=== PATIENT | female | born 1945 | race Caucasian/White ===

== ENCOUNTER → 2017-06-30 | Outpatient (CLI) | payer MEDICARE, OTHER ==
[~2017-06-30] MED LIST: AMLO5TAB2 PO; CETI10CA PO; CIPR500T78 PO; ENAL20TA PO; HYDR-757 PO; IBUP-30 PO; LACTAID9000 UNIT PO; METR500T PO; [UNRECOGNIZED DRUG - CODE] PO
--- NOTE | 2017-06-30 17:35 | Diagnostic Imaging Report ---
Bilateral screening mammogram 2D views with tomosynthesis. The current study was also evaluated with a Computer Aided Detection (CAD) system. INDICATION: Screening. No current complaints stated on the questionnaire. COMPARISON: 06/22/2016. FINDINGS: The breasts are composed of heterogeneously dense parenchyma which may decrease mammographic sensitivity. Benign-appearing calcifications are seen. Allowing for technique and positional differences, no suspicious change is seen. IMPRESSION: Dense breasts with no definite change. ACR BI-RADS Category 2: Benign findings. Result letter will be mailed to the patient. Note: At least 10% of breast cancer is not imaged by mammography. Dictated by: Dictated on workstation # [id number]
== END ==
LOC: RAD 13:06
PROVIDERS: ATTEND Nurse Practitioner Family
DX: Z12.31 Encounter for screening mammogram for malignant neoplasm of breast (principal)
CPT/HCPCS: 77067

== ENCOUNTER 2017-08-02 14:01 | Emergency (ER) | payer MEDICARE, OTHER ==
[~2017-08-02] VITALS: Ht 165.1 cm; Wt 59.0 kg
--- OUTSIDE RECORDS SUMMARY | 2017-08-02 14:06 | XMS REPORT | Continuity of Care Document ---
Author Author [facility] Organization [facility] Address Unknown Phone Unavailable Care Team Providers Care Education Adviser Name Role Phone [employer] Unavailable Unavailable Problems Medications Allergies, Adverse Reactions, Alerts Immunizations Results Vital Signs Encounters Location Location Details Encounter Type Encounter Number Reason For Visit Attending Provider ADM Date DC Date Status Source OUTPATIENT [id number] RANDY WARE 05/05/20172016 Active [facility] O Active [facility] Procedures Plan of Care Social History Assessment and Plan Family History Value Date Source Advance Directives Order Name Results Value Date Source
--- OUTSIDE RECORDS SUMMARY | 2017-08-02 14:07 | XMS REPORT | Clinical Summary ---
Author Author [facility] Address Unknown Phone Unavailable Care Team Providers Care Frame Welder Cargo Utility Trailers Name Role Phone PCP Unavailable Source Comments Some departments are not documenting in the electronic medical record. If you do not see the information that you expected, contact Release of Information in the Health Information Management department at [phone] for further assistance in locating additional records.[facility] Allergies Active Allergy Reactions Severity Noted Date Comments Etodolac RASH Medium 01/16/2015 Pollen SNEEZING, EDEMA Medium 07/30/2015 Sulfa (Sulfonamide RASH Medium 01/16/2015 Antibiotics) Milk Containing Products NAUSEA ONLY Low 01/16/2015 Lactose Intolerance Current Medications Prescription Sig. Disp. Refills Start End Date Status Date Cetirizine (ZYRTEC) 10 mg Take by mouth. Active cap L-GLUTAMINE PO Take 100 mg by mouth Active daily. CYANOCOBALAMIN (VITAMIN Take 1,000 mcg by mouth Active B-12) (B-12 DOTS PO) daily. atorvastatin (LIPITOR) 20 Take 20 mg by mouth at Active mg tablet bedtime daily. fish oil /omega-3 fatty Take 2 Caps by mouth Active acids (SEA-OMEGA) twice daily. 340/1000 mg capsule cholecalciferol (VITAMIN Take 1,000 Units by mouth Active D-3) 1,000 units tablet daily. MULTIVITAMIN WITH Take by mouth. Active MINERALS (MULTIVITAMIN & MINERAL FORMULA PO) losartan (COZAAR) 50 mg Take 50 mg by mouth Active tablet daily. adalimumab(+) (HUMIRA Inject 40 mg under the 1 each 0 06/17/20 Active PEN) 40 mg/0.8 mL skin every 14 days. 17 injection pen Active Problems Problem Noted Date Crohn's disease of ileum without complication (HCC) 08/23/2016 Encounters Date Type Specialty Care Team Description 06/17/2017 Refill Gastroenterology Franky Blackwell MD 06/15/2017 Refill Gastroenterology Franky Blackwell MD 05/18/2017 Refill Gastroenterology Franky Blackwell MD 05/05/2017 Hospital Franky Blackwell MD Encounter 05/05/2017 Office Visit Gastroenterology Franky Blackwell MD Crohn's colitis, without complications (Primary Dx) 05/05/2017 Telephone Gastroenterology Franky Blackwell MD Test from Last 3 Months Immunizations Name Dates Previously Given Next Due Pneumococcal Vaccine 07/30/2015 (23-Jill Adult) Family History Medical History Relation Name Comments Cancer Father bone cancer Unknown to Patient Maternal Grandfather Unknown to Patient Maternal Grandmother Dementia Mother Heart Disease Paternal Grandmother Relation Name Status Comments Daughter Alive Father Maternal Grandfather Maternal Grandmother Mother Alive Paternal Grandfather Paternal Grandmother Son Alive Social History Tobacco Use Types Packs/Day Years Used Date Never Smoker Smokeless Tobacco: Never Used Alcohol Use Drinks/Week oz/Week Comments No Sex Assigned at Date Recorded Not on file Last Filed Vital Signs Vital Sign Reading Time Taken Blood Pressure 138/90 05/05/2017 11:03 AM CDT Pulse 70 05/05/2017 11:03 AM CDT Temperature 37.2 C (98.9 F) 05/05/2017 11:03 AM CDT Respiratory Rate 14 05/05/2017 11:03 AM CDT Oxygen Saturation - - Inhaled Oxygen - - Concentration Weight 53 kg (116 lb 14.4 oz) 05/05/2017 11:03 AM CDT Height 157.5 cm (5' 2") 05/05/2017 11:03 AM CDT Body Mass Index 21.38 05/05/2017 11:03 AM CDT Plan of Treatment Date Type Specialty Care Team Description 05/05/2017 Procedure Pass Gastroenterology 05/05/2017 Procedure Pass Gastroenterology Health Maintenance Due Date Last Done Comments HEPATITIS C SCREENING 1945 PHYSICAL (COMPREHENSIVE) 1954 EXAM PERTUSSIS VACCINE 1958 TETANUS VACCINE 1964 BREAST CANCER SCREENING 1987 SHINGLES VACCINE 2007 OSTEOPOROSIS SCREENING 2012 PREVNAR/PNEUMOVAX (#2) 07/30/2016 07/30/2015 INFLUENZA VACCINE 05/03/2017 COLORECTAL CANCER 12/05/2024 12/05/2014 SCREENING Results * CBC (05/05/2017 12:00 PM) Component Value Ref Range White Blood Cells 7.9 4.5 - 11.0 K/UL RBC 4.24 4.0 - 5.0 M/UL Hemoglobin 12.4 12.0 - 15.0 GM/DL Hematocrit 36.7 36 - 45 % MCV 86.5 80 - 100 FL MCH 29.2 26 - 34 PG MCHC 33.8 32.0 - 36.0 G/DL RDW 14.1 11 - 15 % Platelet Count 195 150 - 400 K/UL MPV 10.1 7 - 11 FL Specimen Performing Laboratory [facility] [address] [place] [address] * COMPREHENSIVE METABOLIC PANEL (05/05/2017 12:00 PM) Component Value Ref Range Sodium 142 137 - 147 MMOL/L Potassium 4.0 3.5 - 5.1 MMOL/L Chloride 107 98 - 110 MMOL/L Glucose 111 (H) 70 - 100 MG/DL Blood Urea Nitrogen 23 7 - 25 MG/DL Creatinine 0.95 0.4 - 1.00 MG/DL Calcium 9.6 8.5 - 10.6 MG/DL Total Protein 7.6 6.0 - 8.0 G/DL Total Bilirubin 0.5 0.3 - 1.2 MG/DL Albumin 4.2 3.5 - 5.0 G/DL Alk Phosphatase 65 25 - 110 U/L AST (SGOT) 31 7 - 40 U/L CO2 27 21 - 30 MMOL/L ALT (SGPT) 30 7 - 56 U/L Anion Gap 8 3 - 12 eGFR Non 58 (L) >60 mL/min Comment: The eGFR is not validated for use in drug dosing adjustments. Continue to use estimated creatinine clearance per dosing reference text. Please contact the Clinical Pharmacist for questions. eGFR >60 >60 mL/min Comment: The eGFR is not validated for use in drug dosing adjustments. Continue to use estimated creatinine clearance per dosing reference text. Please contact the Clinical Pharmacist for questions. Specimen Performing Laboratory [facility] [address] [place] [address] from Last 3 Months
--- OUTSIDE RECORDS SUMMARY | 2017-08-02 14:07 | XMS REPORT | Encounter Summary ---
Author Author [facility] Organization [facility] Address Unknown Phone Unavailable Care Team Providers Care Packer Insulation Name Role Phone PCP Unavailable Encounter Details Date Type Department Care Team Description 05/05/2017 Procedure Pass [facility] Physicians - Internal Medicine [address] [place] [phone] Social History Tobacco Use Types Packs/Day Years Used Date Never Smoker Smokeless Tobacco: Never Used Alcohol Use Drinks/Week oz/Week Comments No Sex Assigned at Date Recorded Not on file as of this encounter Functional Status Functional Status Response Date of Assessment Does the patient have a hearing impairment: No 05/05/2017 Does the patient have a visual impairment: Yes 05/05/2017 Does the patient have impaired ambulation: No 05/05/2017 Does the patient have an activity of daily living No 05/05/2017 (ADL) impairment: Does the patient have an instrumental activity of No 05/05/2017 daily living (IADL) impairment: Cognitive Status Response Date of Assessment Does the patient have a cognitive impairment: No 05/05/2017 as of this encounter Plan of Treatment Date Type Specialty Care Team Description 05/05/2017 Procedure Pass Gastroenterology 05/05/2017 Procedure Pass Gastroenterology as of this encounter Visit Diagnoses Not on filein this encounter
--- OUTSIDE RECORDS SUMMARY | 2017-08-02 14:11 | XMS REPORT | Encounter Summary ---
Author Author [facility] Organization [facility] Address Unknown Phone Unavailable Care Team Providers Care Engineering Group Leader Name Role Phone PCP Unavailable Reason for Visit * Reason Comments Medication Refill Humira Encounter Details Date Type Department Care Team Description 06/17/2017 Refill [facility] Franky Blackwell MD Physicians - Internal [address] [facility] [place] [address] [place] [address] [place] [address] Social History Tobacco Use Types Packs/Day Years [...]
--- OUTSIDE RECORDS SUMMARY | 2017-08-02 14:11 | XMS REPORT | Encounter Summary ---
Author Author [facility] Organization [facility] Address Unknown Phone Unavailable Care Team Providers Care Sanitary Landfill Supervisor Name Role Phone PCP Unavailable Encounter Details Date Type Department Care Team Description 05/05/2017 Procedure Pass [facility] Physicians - Internal Medicine [address] [place] [phone] Social History Tobacco Use Types Packs/Day Years [...]
--- OUTSIDE RECORDS SUMMARY | 2017-08-02 14:11 | XMS REPORT | Encounter Summary ---
Author Author [facility] Organization [facility] Address Unknown Phone Unavailable Care Team Providers Care Shellfish Processing Laborer Name Role Phone PCP Unavailable Reason for Visit * Reason Comments Medication Refill Humira Pen 40 MG Encounter Details Date Type Department Care Team Description 06/15/2017 Refill [facility] Franky Blackwell MD Physicians - Internal [address] [facility] [place] [address] [place] [address] [place] [address] Social History Tobacco Use Types [...] impairment: No 05/05/2017 as of this encounter Miscellaneous Notes * Telephone Encounter - Deyanira Mccoy LPN - 06/15/2017 2:06 PM CDT Refill Humira Pen 40 MG in this encounter Plan of Treatment Date Type Specialty Care Team Description 05/05/2017 Procedure Pass Gastroenterology 05/05/2017 Procedure Pass Gastroenterology as of this encounter Visit Diagnoses Not on filein this encounter
--- OUTSIDE RECORDS SUMMARY | 2017-08-02 14:11 | XMS REPORT | Encounter Summary ---
Author Author [facility] Organization [facility] Address Unknown Phone Unavailable Care Team Providers Care Senior Talent Management Consultant Name Role Phone PCP Unavailable Reason for Visit * Reason Comments Medication Refill Encounter Details Date Type Department Care Team Description 05/18/2017 Refill [facility] Franky Blackwell MD Physicians - Internal [address] [facility] Medicine [place] [address] [place] [address] [address] [facility] [phone] [place] [address] Social History Tobacco Use Types Packs/Day Years [...] encounter Miscellaneous Notes * Telephone Encounter - Brigitte Brunsonsha - 05/18/2017 1:06 PM CDT Formatting of this note may be different from the original. Refill request received for Humira Pen 40 mg Last OV 05/05/2017 Last fill 04/12/2017 Qty #1 each Refills 0 Last labs 05/05/2017 Routing to Franky Grisolano for approval/refusal Comprehensive Metabolic Profile Lab Results Component Value Date/Time NA 142 05/05/2017 12:00 PM K 4.0 05/05/2017 12:00 PM CL 107 05/05/2017 12:00 PM CO2 27 05/05/2017 12:00 PM GAP 8 05/05/2017 12:00 PM BUN 23 05/05/2017 12:00 PM CR 0.95 05/05/2017 12:00 PM GLU 111 (H) 05/05/2017 12:00 PM Lab Results Component Value Date/Time CA 9.6 05/05/2017 12:00 PM ALBUMIN 4.2 05/05/2017 12:00 PM TOTPROT 7.6 05/05/2017 12:00 PM ALKPHOS 65 05/05/2017 12:00 PM AST 31 05/05/2017 12:00 PM ALT 30 05/05/2017 12:00 PM TOTBILI 0.5 05/05/2017 12:00 PM GFR 58 (L) 05/05/2017 12:00 PM GFRAA >60 05/05/2017 12:00 PM CBC w/Diff Lab Results Component Value Date/Time WBC 7.9 05/05/2017 12:00 PM RBC 4.24 05/05/2017 12:00 PM HGB 12.4 05/05/2017 12:00 PM HCT 36.7 05/05/2017 12:00 PM MCV 86.5 05/05/2017 12:00 PM MCH 29.2 05/05/2017 12:00 PM MCHC 33.8 05/05/2017 12:00 PM RDW 14.1 05/05/2017 12:00 PM PLTCT 195 05/05/2017 12:00 PM MPV 10.1 05/05/2017 12:00 PM Lab Results Component Value Date/Time NEUT 68.4 04/29/2014 ANC 5.4 04/29/2014 LYMA 25.5 04/29/2014 ALC 2.0 04/29/2014 in this encounter Plan of Treatment Date Type Specialty Care Team Description 05/05/2017 Procedure Pass Gastroenterology 05/05/2017 Procedure Pass Gastroenterology as of this encounter Visit Diagnoses Not on filein this encounter
[2017-08-02 14:12] VITALS: BP 181/93
--- OUTSIDE RECORDS SUMMARY | 2017-08-02 14:12 | XMS REPORT | Encounter Summary ---
Author Author [facility] Organization [facility] Address Unknown Phone Unavailable Care Team Providers Care Offal Trimmer Name Role Phone PCP Unavailable Reason for Visit * Reason Comments Test Encounter Details Date Type Department Care Team Description 05/05/2017 Telephone [facility] Franky Blackwell MD Test Physicians - Internal [address] [facility] [place] [address] [place] [address] [place] [address] Social History Tobacco Use Types [...] encounter Miscellaneous Notes * Telephone Encounter - Marine Mccoy RN - 05/05/2017 1:42 PM CDT Clarified with Radiology Schedule MR should be enterography abd/pelvis Lisa [id number] in this encounter Plan of Treatment Date Type Specialty Care Team Description 05/05/2017 Procedure Pass Gastroenterology 05/05/2017 Procedure Pass Gastroenterology as of this encounter Visit Diagnoses Not on filein this encounter
--- OUTSIDE RECORDS SUMMARY | 2017-08-02 14:12 | XMS REPORT | Encounter Summary ---
Author Author [facility] Organization [facility] Address Unknown Phone Unavailable Care Team Providers Care Dairy Quality Assurance Officer Name Role Phone PCP Unavailable Encounter Details Date Type Department Care Team Description 05/05/2017 [facility] Franky Blackwell MD Encounter [address] [place] [address] [address] [place] [address] Social History Tobacco Use Types Packs/Day Years [...] impairment: No 05/05/2017 as of this encounter Medications at Time of Discharge Medication Sig. Disp. Refills Start Date End Date atorvastatin (LIPITOR) 20 Take 20 mg by mouth at mg tablet bedtime daily. Cetirizine (ZYRTEC) 10 mg Take by mouth. cap cholecalciferol (VITAMIN Take 1,000 Units by mouth D-3) 1,000 units tablet daily. CYANOCOBALAMIN (VITAMIN Take 1,000 mcg by mouth B-12) (B-12 DOTS PO) daily. fish oil /omega-3 fatty Take 2 Caps by mouth acids (SEA-OMEGA) twice daily. 340/1000 mg capsule L-GLUTAMINE PO Take 100 mg by mouth daily. losartan (COZAAR) 50 mg Take 50 mg by mouth tablet daily. MULTIVITAMIN WITH Take by mouth. MINERALS (MULTIVITAMIN & MINERAL FORMULA PO) adalimumab(+) (HUMIRA Inject 40 mg under the 1 Each 0 04/12/2017 PEN) 40 mg/0.8 mL skin every 14 days. injection pen as of this encounter Plan of Treatment Date Type Specialty Care Team Description 05/05/2017 Procedure Pass Gastroenterology 05/05/2017 Procedure Pass Gastroenterology as of this encounter Results * COMPREHENSIVE METABOLIC PANEL (05/05/2017 12:00 PM) [...] Performing Laboratory [facility] [address] [place] [address] * CBC (05/05/2017 12:00 PM) Component Value [...] Performing Laboratory [facility] [address] [place] [address] in this encounter Visit Diagnoses Diagnosis Crohn's colitis, without complications (HCC) in this encounter
--- OUTSIDE RECORDS SUMMARY | 2017-08-02 14:12 | XMS REPORT | Encounter Summary ---
Author Author [facility] Organization [facility] Address Unknown Phone Unavailable Care Team Providers Care Ships Equipment Engineer Name Role Phone PCP Unavailable Reason for Referral * Radiology Services Status Reason Specialty Diagnoses / Referred By Referred To Procedures Contact Contact New Request Radiology Diagnoses [place] Blackwell's colitisFranky MD without [address] ([facility]) [place] [address] [place], [place] rocedures [address] MRI PELVIS W Phone: CONTRAST [phone] * Radiology Services Status Reason Specialty Diagnoses / Referred By Referred To Procedures Contact Contact No Auth Needed Radiology Diagnoses Rishi Bhb Mri Crohn's colitis, MD Franky [address] without [address] [place], [place] ([facility]) [address] [address] [address] [place], [place] Phone: [email or web address] [phone] MRI ABDOMEN W Phone: CONTRAST [phone] Reason for Visit * Reason Comments Crohn's Disease follow up Encounter Details Date Type Department Care Team Description 05/05/2017 Office Visit [facility] Franky Blackwell MD Crohn's colitis, without Physicians - Internal [address] complications (Primary Medicine [place] [address] Dx) [address] [place] [address] [place] [address] Social History Tobacco Use Types Packs/Day Years Used Date Never Smoker Smokeless Tobacco: Never Used Alcohol Use Drinks/Week oz/Week Comments No Sex Assigned at Date Recorded Not on file as of this encounter Last Filed Vital Signs Vital Sign Reading [...] Mass Index 21.38 05/05/2017 11:03 AM CDT in this encounter Functional Status Functional Status Response [...] impairment: No 05/05/2017 as of this encounter Instructions * Patient Instructions - Franky Blackwell MD - 05/05/2017 1:00 PM CDT Call my nurse at [phone] if you have any troubles or questions. Humira Instructions These are very powerful medication used to treat inflammatory bowel disease. There is increased risk of infections while taking this medication. There is a small increase in the risk of lymphoma with this medication; however, the benefit of taking this medication in your situation is felt to greatly outweigh this risk. Skin cancer risk is increased. You need to wear sun screen and undergo a full body skin cancer check each year by a Loader (or your primary physician). You must take responsibility for keeping all follow up appointments and getting regular blood tests to monitor for any toxicity while on this medication. Call my nurse with any questions of if you are not feeling well ([phone]). Additional information about this medication can be found at the [employer] [place] website (www.ccfa.org) and I encourage you to visit this website. 1. Please keep all scheduled follow up visits. Contact my office if you are unable to keep an appointment or if you develop any troubles or symptoms between office visits. 2. Contact your primary physician's office if you develop any signs of an infection. If you have a suspected infection or are being treated for a current infection YOU CAN NOT take this medication until the infection has completely resolved. 3. Contact my office if you develop persistent fevers, chills, night sweats or swollen lymph nodes or glands. 4. DO NOT receive any LIVE VIRUS VACCINES [live vaccines include: nasal influenza, MMR, Varicella-Zoster (chicken pox and Shingles vaccines), Rotavirus] . 5. You will need a yearly influenza vaccine (DO NOT take the nasal influenza vaccine; only receive the shot). 6. You will need a pneumonia vaccination; you will also need pneumonia vaccine booster in 5 years. If you have not received this vaccination get this from your primary physician. 7. If you are female, please discuss HPV vaccination with your primary physician or textile conservator. 8. I recommend a yearly skin cancer check by a ivory polisher while on this medication as this medication can increase your risk of skin cancer. Always use sun screen as an additional protection. Please have this referral made yearly by your primary physician. Please schedule follow-up appointment with Dr. Blackwell in about 3 months along with MR Enterography. Radiology phone number is [phone]. in this encounter Progress Notes * Franky Blackwell MD - 05/05/2017 1:00 PM CDT Formatting of this note may be different from the original. Date of Service: 05/05/2017 Subjective: Jackeline Ventura is a 71 y.o. female. History of Present Illness I last saw Mrs. Ventura on 12/23/2016. She has ileal Crohn's and has been on Humira 40 mg every other week since October 2015. Most recent MR enterography on 05/06/2016, revealed mild chronic mucosal thickening in the distal ileum. There was no evidence of active inflammation. Since I last saw her, she has been doing well. She typically has a formed stool daily. She denied any blood in the stool. She denies anorexia, nausea, or vomiting. Her weight is up one pound. She denies any fevers, chills, night sweats, or swollen glands. She denies any neurologic symptoms. She denies any eye, skin, or joint symptoms that would suggest extraintestinal manifestation of inflammatory bowel disease. Fortunately, her son was diagnosed with a pulmonary embolism last night, but it sounds as though he is doing well. Previous history: Repeat colonoscopy at on 12/05/2014. This revealed some areas of mucosal scarring in the colon, but there was no active colonic mucosal inflammation and random colon biopsies were normal. However, she was noted to have several small aphthous ulcers with normal intervening mucosa found in the terminal ileum. Biopsies from the ileum revealed focal ulceration with associated mild active ileitis and architectural distortion. There was no evidence for granulomas or dysplasia. Flow cytometry was also performed and there was no evidence for lymphoma. MR enterography 06/03/15 17 cm segment of terminal ileal, mucosal thickening with mild hyper enhancement suggestive of acute on chronic changes of Crohn's disease. Past medical history: 1. Ileitis, suspected Crohn disease (diagnosed 12/2014); Humira initiated 2015. 2. Hypertension. 3. Seasonal allergies. 4. History of noncardiac chest pain. 5. Lactose intolerance. 6. Status post hysterectomy. 7. Vitamin D deficiency. 8. History of iron-deficiency anemia. 9. Flu vaccine 2016. 10. Prior pneumonia vaccine. Family history: There is no known family history of inflammatory bowel disease. Review of Systems Constitutional: Positive for fatigue. Negative for fever. Eyes: Positive for itching. Allergic/Immunologic: Positive for environmental allergies. Hematological: Negative for adenopathy. All other systems reviewed and are negative. Objective: adalimumab(+) (HUMIRA PEN) 40 mg/0.8 mL injection pen Inject 40 mg under the skin every 14 days. atorvastatin (LIPITOR) 20 mg tablet Take 20 mg by mouth at bedtime daily. Cetirizine (ZYRTEC) 10 mg cap Take by mouth. cholecalciferol (VITAMIN D-3) 1,000 units tablet Take 1,000 Units by mouth daily. CYANOCOBALAMIN (VITAMIN B-12) (B-12 DOTS PO) Take 1,000 mcg by mouth daily. fish oil /omega-3 fatty acids (SEA-OMEGA) 340/1000 mg capsule Take 2 Caps by mouth twice daily. L-GLUTAMINE PO Take 100 mg by mouth daily. losartan (COZAAR) 50 mg tablet Take 50 mg by mouth daily. MULTIVITAMIN WITH MINERALS (MULTIVITAMIN & MINERAL FORMULA PO) Take by mouth. Vitals: 05/05/17 1103 BP: 138/90 Pulse: 70 Resp: 14 Temp: 37.2 C (98.9 F) TempSrc: Oral Weight: 53 kg (116 lb 14.4 oz) Height: 157.5 cm (62") Body mass index is 21.38 kg/(m^2). Physical Exam Constitutional: She is oriented to person, place, and time. She appears well- developed and well-nourished. No distress. HENT: Head: Normocephalic and atraumatic. Eyes: Conjunctivae are normal. No scleral icterus. Neck: Neck supple. No tracheal deviation present. No thyromegaly present. Cardiovascular: Normal rate, regular rhythm and normal heart sounds. Exam reveals no gallop and no friction rub. No murmur heard. Pulmonary/Chest: Effort normal and breath sounds normal. No respiratory distress. She has no wheezes. She has no rales. She exhibits no tenderness. Abdominal: Soft. Bowel sounds are normal. She exhibits no distension and no mass. There is no tenderness. There is no rebound and no guarding. Musculoskeletal: She exhibits no edema. Lymphadenopathy: She has no cervical adenopathy. Neurological: She is alert and oriented to person, place, and time. Skin: Skin is warm and dry. No rash noted. She is not diaphoretic. No erythema. No pallor. Psychiatric: She has a normal mood and affect. Her behavior is normal. Judgment and thought content normal. Assessment and Plan: 1. Ileal Crohn disease. 2. Chronic biologic therapy, Humira, initiated 10/16/15. 3. Vitamin D deficiency, on replacement therapy. 4. History of iron deficiency. Overall, Mrs. Ventura continues to do very well. She has no active GI symptoms to suggest active Crohn disease at this time. She is tolerating Humira without troubles. We had a long discussion regarding chronic biologic therapy including the risks and we specifically discussed risk of infection and lymphoma. She knows to seek medical attention for any signs or symptoms of infection as well as Holter injection if she is feeling poorly. We discussed repeating MRE at the time of her next follow up with me. I have also asked her to contact me if she starts noticing any signs or symptoms that would suggest a flare as we would need to consider restaging her at that time. At the present time, I recommend the following indent: 1. We will check CBC, chemistry panel today. 2. Continue Humira 40 mg every two weeks. 3. She will continue vitamin D replacement. 4. She will continue vitamin B12 replacement. 5. Follow up in 3-4 months or sooner if she has any troubles. I had a long discussion with Mrs. Ventura and all questions were answered. She has a very good understanding of her current disease process as well as the risks associated with chronic biologic therapy. I spent 25 minutes with the patient in a [id number] manner today, over 50% of the time was spent counseling and coordinating care. in this encounter Plan of Treatment Date Type Specialty Care Team Description 05/05/2017 Procedure Pass Gastroenterology 05/05/2017 Procedure Pass Gastroenterology Name Priority Associated Diagnoses Order Schedule MRI ABDOMEN W CONTRAST Routine Crohn's colitis, without Expected: 2016 complications (Approximate), Expires: 05/05/2018 MRI PELVIS W CONTRAST Routine Crohn's colitis, without Expected: 2016 complications (Approximate), Expires: 05/05/2018 as of this encounter Results * COMPREHENSIVE [...] Pharmacist for questions. Specimen Performing Laboratory Blood MAIN LAB [address] [place] [address] * CBC (05/05/2017 12:00 PM) Component Value [...] - 11 [place] Specimen Performing Laboratory Blood MAIN LAB [address] [place] [address] in this encounter Visit Diagnoses Diagnosis Crohn's colitis, without complications (HCC) - Primary in this encounter
--- OUTSIDE RECORDS SUMMARY | 2017-08-02 14:12 | XMS REPORT ---
Author ZACH Gutierrez Organization [employer] Address Unknown Phone Unavailable Care Team Providers Care Replenishment Buyer Name Role Phone ZACH ROSA CP Unavailable Allergies No Known Allergies Problems Problem Type Condition Code Onset Dates Condition Status Assessment Encounter for immunization Z23 Active Problem Need for prophylactic vaccination and inoculation, Influenza V04.81 Active Medications No Known Medications Procedures Procedure Coding System Code Date SINGLE IMMUNIZATION ADMIN CPT-4 13765 Oct 14, 2015 HEP B (PED/ADOL, 3 DOSE) CPT-4 24682 Oct 14, 2015 Results No Known Results Immunizations Vaccine Administration Date HEP B (PED/ADOL, 3 DOSE) Oct 14, 2015 Summary Purpose [employer] Submission
--- OUTSIDE RECORDS SUMMARY | 2017-08-02 14:14 | XMS REPORT | Continuity of Care Document ---
Author Author [facility] Organization [facility] Address Unknown Phone Unavailable Allergies Active Description Code Type Severity Reaction Onset Reported/Identified Relationship to Patient Clinical Status Yes etodolac [id number] Drug Allergy Unknown N/A 04/03/2014 Yes Sulfa (Sulfonamide Antibiotics) [id number] Drug Allergy Unknown N/A 04/03/2014 Medications Problems Date Dx Coded Attending Type Code Diagnosis Diagnosed By 07/09/2015 GINA VELASQUEZ MD Ot V76.12 10/08/2015 SYDNI JARRELL Ot E78.5 10/08/2015 SYDNI JARRELL Ot I10 10/08/2015 SYDNI JARRELL Ot R06.00 10/08/2015 SYDNI JARRELL Ot R07.89 10/08/2015 SYDNI JARRELL Ot R09.89 12/16/2015 TUAN BURR BREADMAN Ot S92.424A 12/16/2015 TUAN BURR BREADMAN Ot W20.8XXA 12/16/2015 TUAN BURR BREADMAN Ot Y92.009 12/16/2015 TUAN BURR BREADMAN Ot Y99.8 12/17/2015 TUAN BURR BREADMAN Ot S92.424A 12/17/2015 TUAN BURR BREADMAN Ot W20.8XXA 12/17/2015 TUAN BURR BREADMAN Ot Y92.009 12/17/2015 TUAN BURR BREADMAN Ot Y99.8 06/23/2016 RON OLEARY, GINA R Ot Z12.31 ENCNTR SCREEN MAMMOGRAM FOR MALIGNANT NE 06/23/2016 RON OLEARY, GINA Jenkins Ot Z12.31 ENCNTR SCREEN MAMMOGRAM FOR MALIGNANT NE 06/24/2016 GINA VELASQUEZ MD Ot Z12.31 ENCNTR SCREEN MAMMOGRAM FOR MALIGNANT NE 07/01/2016 GINA VELASQUEZ MD Ot Z12.31 ENCNTR SCREEN MAMMOGRAM FOR MALIGNANT NE 07/06/2016 SYDNI JARRELL Ot E78.2 MIXED HYPERLIPIDEMIA 07/06/2016 SYDNI JARRELL Ot I10 ESSENTIAL (PRIMARY) HYPERTENSION 07/06/2016 SYDNI JARRELL Ot I25.10 ATHSCL HEART DISEASE [place] CORONARY 07/06/2016 SYDNI JARRELL Ot R06.02 SHORTNESS OF BREATH 07/28/2016 SYDNI JARRELL Ot E78.2 MIXED HYPERLIPIDEMIA 07/28/2016 SYDNI JARRELL Ot I10 ESSENTIAL (PRIMARY) HYPERTENSION 07/28/2016 SYDNI JARRELL Ot I25.10 ATHSCL HEART DISEASE [place] CORONARY 07/28/2016 SYDNI JARRELL Ot R06.02 SHORTNESS OF BREATH 07/06/2017 ROSA COLEMAN APRN Ot Z12.31 ENCNTR SCREEN MAMMOGRAM FOR MALIGNANT NE 07/20/2017 ROSA COLEMAN APRN Ot Z12.31 ENCNTR SCREEN MAMMOGRAM FOR MALIGNANT NE Procedures Results Encounters ACCT No. Visit Date/Time Discharge Status Pt. Type Provider Facility Loc./Unit Complaint [id number] 06/30/2017 13:06:00 2016 23:59:59 CLS Outpatient ROSA COLEMAN APRN [facility] RAD SCREENING Z12.31 [id number] 07/05/2016 11:38:00 2015 23:59:59 CLS Outpatient SYDNI JARRELL [facility] CARD CAD,HTN,DYSPNEA [id number] 06/22/2016 12:39:00 2015 23:59:59 CLS Outpatient GINA VELASQUEZ MD [facility] RAD SCREENING [id number] 12/16/2015 19:51:00 2015 20:51:00 DIS Emergency TUAN BURR APRN [facility] ER [id number] 09/15/2015 15:10:00 2014 23:59:59 CLS Outpatient OPAL ACEVEDO, SYDNI Martin [facility] RAD [id number] 06/18/2015 08:51:00 2014 23:59:59 CLS Outpatient RON OLEARY, GINA Jenkins [facility] RAD [id number] 06/05/2014 10:25:00 2013 23:59:59 CLS Outpatient [id number] 04/03/2014 08:45:00 2013 12:09:00 DIS Outpatient [id number] 03/28/2014 07:22:00 2013 23:59:59 CLS Outpatient [id number] 10/08/2013 13:25:00 2013 13:52:00 DIS Outpatient [id number] 10/02/2013 13:00:00 2013 14:15:00 DIS Outpatient [id number] 05/17/2013 09:25:00 2012 23:59:59 CLS Outpatient
--- OUTSIDE RECORDS SUMMARY | 2017-08-02 14:14 | XMS REPORT ---
Author ZACH Gutierrez Organization [employer] Address Unknown Phone Unavailable Care Team Providers Care Youth Officer Name Role Phone ZACH ROSA CP Unavailable Allergies No Known Allergies Problems Problem Type Condition Code Onset Dates Condition Status Assessment Encounter for immunization Z23 Active Problem Need for prophylactic vaccination and inoculation, Influenza V04.81 Active Medications No Known Medications Procedures Procedure Coding System Code Date SINGLE IMMUNIZATION ADMIN CPT-4 09421 Aug 14, 2015 [place] (HEP A/B) CPT-4 60852 Aug 14, 2015 Results No Known Results Immunizations Vaccine Administration Date [place] (HEP A/B) Aug 14, 2015 Summary Purpose [employer] Submission
--- NOTE | 2017-08-02 14:44 | Diagnostic Imaging Report ---
EXAM: CT head. TECHNIQUE: Noncontrast axial images of the brain were obtained. INDICATION: Left-sided numbness and tingling. FINDINGS: There is no intracranial hemorrhage, edema or mass effect. The brain parenchyma appears unremarkable. No hydrocephalus. The visualized portions of the orbits and paranasal sinuses appear unremarkable. IMPRESSION: Unremarkable study. Dictated by: Dictated on workstation # [id number]
[2017-08-02 15:06] LABS: BASOPHILS % (AUTO) 0 % (0-10); EOSINOPHILS # (AUTO) 0.1 10^3/uL (0.0-0.3); EOSINOPHILS % (AUTO) 2 % (0-10); LYMPHOCYTES % (AUTO) 28 % (12-44); MEAN CORPUSCULAR HEMOGLOBIN 29 PG (25-34); MEAN CORPUSCULAR HGB CONC 32 G/DL (32-36); MEAN CORPUSCULAR VOLUME 91 FL (80-99); MEAN PLATELET VOLUME 11.2 FL (7.4-10.4); MONOCYTES # (AUTO) 0.7 X 10^3 (0.0-1.0); MONOCYTES % (AUTO) 9 % (0-12); NEUTROPHILS # (AUTO) 4.4 X 10^3 (1.8-7.8); NEUTROPHILS % (AUTO) 61 % (42-75); PLATELET COUNT 195 10^3/uL (130-400); RED BLOOD COUNT 4.36 10^6/uL (4.35-5.85); RED CELL DISTRIBUTION WIDTH 13.7 % (10.0-14.5); WHITE BLOOD COUNT 7.3 10^3/uL (4.3-11.0)
[2017-08-02 15:13] LABS: BILIRUBIN,URINE NEGATIVE (NEGATIVE); KETONES,URINE NEGATIVE (NEGATIVE); LEUKOCYTE ESTERASE ,URINE NEGATIVE (NEGATIVE); NITRITE,URINE NEGATIVE (NEGATIVE); PH,URINE 6 (5-9); PROTEIN,URINE NEGATIVE (NEGATIVE); SQUAMOUS EPITHELIAL CELL,UR 0-2 /HPF; UROBILINOGEN,URINE NORMAL (NORMAL)
[2017-08-02 15:31] LABS: ALANINE AMINOTRANSFERASE 20 U/L (0-55); ALBUMIN 3.9 GM/DL (3.2-4.5); ANION GAP 8 MMOL/L (5-14); ASPARTATE AMINO TRANSFERASE 23 U/L (5-34); BILIRUBIN,TOTAL 0.5 MG/DL (0.1-1.0); BLOOD UREA NITROGEN 17 MG/DL (7-18); BUN/CREATININE RATIO 18; CALCIUM 9.1 MG/DL (8.5-10.1); CARBON DIOXIDE 26 MMOL/L (21-32); CHLORIDE 106 MMOL/L (98-107); CREATININE SERUM 0.96 MG/DL (0.60-1.30); GFR ESTIMATED 58; GLUCOSE 91 MG/DL (70-105); MAGNESIUM 1.9 MG/DL (1.8-2.4); POTASSIUM 3.9 MMOL/L (3.6-5.0); SODIUM 140 MMOL/L (135-145); TOTAL PROTEIN 6.9 GM/DL (6.4-8.2)
[2017-08-02 15:51] LABS: TROPONIN I < 0.30 NG/ML (<0.30)
--- NOTE | 2017-08-02 16:19 | ED Neurological Problem ---
General Chief Complaint: Neuro-Stroke Like Symptoms Stated Complaint: POSS TIA Nursing Triage Note: c/o episode of numbness to left side last approx 10. Incident happened around 1245. Nursing Sepsis Screen: No Definite Risk Source: patient Exam Limitations: no limitations History of Present Illness Time seen by provider: 14:05 Initial Comments This 71-year-old woman presents to the emergency room with complaints of sudden onset of left arm, leg, and facial numbness starting somewhere between 12:30 and 13:30. Symptoms lasted for about 10 minutes and then completely resolved. On assessment she has no measurable neurologic deficits. She denies any other symptoms. She denies any weakness. Allergies and Home Medications Allergies Coded Allergies: Etodolac (Verified Allergy, Unknown, 04/03/14) Sulfa (Sulfonamide Antibiotics) (Verified Allergy, Unknown, 04/03/14) Home Medications Cetirizine Hcl 10 Mg Capsule, 10 MG PO DAILY, (Reported) Ciprofloxacin HCl 500 Mg Tablet, 500 MG PO BID for 10 Days, Ref 1 Prescribed by: SOL COREY on 04/03/14 1110 Enalapril Maleate 20 Mg Tablet, 20 MG PO DAILY, (Reported) Hydrocodone/Acetaminophen 1 Each Tablet, 1 EACH PO Q4H PRN for PAIN, #10 Prescribed by: TUAN BURR on 12/16/152020 Metronidazole 500 Mg Tab, 1 EACH PO TID for 10 Days, Ref 1 Prescribed by: SOL COREY on 04/03/14 1110 Constitutional: no symptoms reported Eyes: No Symptoms Reported Ears, Nose, Mouth, Throat: no symptoms reported Respiratory: no symptoms reported Cardiovascular: no symptoms reported Gastrointestinal: no symptoms reported Genitourinary: no symptoms reported : No Musculoskeletal: no symptoms reported Skin: no symptoms reported Psychiatric/Neurological: See HPI Endocrine: No Symptoms Reported Hematologic/Lymphatic: No Symptoms Reported Past Eminkfi-Yxmlcy-Ledgfs Hx Patient Social History Alcohol Use: Denies Use Recreational Drug Use: No Smoking Status: Never a Smoker Recent Foreign Travel: No Contact w/Someone Who Travel: No Recent Infectious Disease Expo: No Surgeries History of Surgeries: Yes Surgeries: Hysterectomy Respiratory History of Respiratory Disorde: No Cardiovascular History of Cardiac Disorders: Yes Cardiac Disorders: Hypertension Neurological History of Neurological Disord: No Reproductive System : No Genitourinary History of Genitourinary Disor: No Gastrointestinal History of Gastrointestinal Di: Yes Gastrointestinal Disorders: Crohns Disease Musculoskeletal History of Musculoskeletal Dis: No Endocrine History of Endocrine Disorders: No HEENT History of HEENT Disorders: No Cancer History of Cancer: No Psychosocial History of Psychiatric Problem: No Integumentary History of Skin or Integumenta: No Physical Exam Vital Signs Vital Sign - Last 12Hours 08/02/17 14:12 Pulse 72 Resp 16 B/P (MAP) 181/93 Pulse Ox 98 Capillary Refill : Less Than 3 Seconds General Appearance: WD/WN, no apparent distress HEENT: PERRL/EOMI, normal ENT inspection, pharynx normal Neck: normal inspection Respiratory: lungs clear, normal breath sounds, no respiratory distress, no accessory muscle use Cardiovascular: regular rate, rhythm, no edema, no murmur Gastrointestinal: normal bowel sounds, non tender, soft Extremities: normal inspection, no pedal edema 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, no motor/sensory deficits, alert, normal mood/affect, oriented x 3 Crainal Nerves: normal hearing, normal speech, PERRL Coordination/Gait: normal finger to nose, normal gait Motor/Sensory: no motor deficit, no sensory deficit Skin: normal color, warm/dry Stroke NIH Stroke Scale Assessment Level of Consciousness: 0=Alert (0), Level of Consciousness-Questions: 0= Answers both month/age (0), LOC Commands: 0=Performs both tasks (0), Visual Mccarthy: 0=No visual loss (0), Facial Movement (Facial Paresis): 0=Normal symmetrical mnt (0), Motor Function-Arms Right: 0=No drift (0), Motor Function- Arms Left: 0=No drift (0), Motor Function-Legs Right: 0=No drift (0), Limb Ataxia: 0=Absent (0), Sensory: 0=Normal:no loss (0), Best Language: 0=No aphasia (0), Dysarthria: 0=Normal (0), Extinction & Inattention: 0=No abnormality (0), Total: 0 Progress/Results/Core Measures Results/Orders Lab Results Laboratory Tests Test 08/02/17 14:50 08/02/17 14:55 08/02/17 15:05 Range/Units White Blood Count 7.3 4.3-11.0 10^3/uL Red Blood Count 4.36 4.35-5.85 10^6/uL Hemoglobin 12.8 11.5-16.0 G/DL Hematocrit 40 35-52 % Mean Corpuscular Volume 91 80-99 FL Mean Corpuscular Hemoglobin 29 25-34 PG Mean Corpuscular Hemoglobin Concent 32 32-36 G/DL Red Cell Distribution Width 13.7 10.0-14.5 % Platelet Count 195 130-400 10^3/uL Mean Platelet Volume 11.2 H 7.4-10.4 FL Neutrophils (%) (Auto) 61 42-75 % Lymphocytes (%) (Auto) 28 12-44 % Monocytes (%) (Auto) 9 0-12 % Eosinophils (%) (Auto) 2 0-10 % Basophils (%) (Auto) 0 0-10 % Neutrophils # (Auto) 4.4 1.8-7.8 X 10^3 Lymphocytes # (Auto) 2.0 1.0-4.0 X 10^3 Monocytes # (Auto) 0.7 0.0-1.0 X 10^3 Eosinophils # (Auto) 0.1 0.0-0.3 10^3/uL Basophils # (Auto) 0.0 0.0-0.1 10^3/uL Urine Color YELLOW Urine Clarity CLEAR Urine pH 6 5-9 Urine Specific [place] 1.010 L 1.016-1.022 Urine Protein NEGATIVE NEGATIVE Urine Glucose (UA) NEGATIVE NEGATIVE Urine Ketones NEGATIVE NEGATIVE Urine Nitrite NEGATIVE NEGATIVE Urine Bilirubin NEGATIVE NEGATIVE Urine Urobilinogen NORMAL NORMAL MG/DL Urine Leukocyte Esterase NEGATIVE NEGATIVE Urine RBC (Auto) NEGATIVE NEGATIVE Urine RBC NONE /HPF Urine WBC NONE /HPF Urine Squamous Epithelial Cells 0-2 /HPF Urine Crystals NONE /LPF Urine Bacteria NONE /HPF Urine Casts NONE /LPF Urine Mucus NEGATIVE /LPF Urine Culture Indicated NO Sodium Level 140 135-145 MMOL/L Potassium Level 3.9 3.6-5.0 MMOL/L Chloride Level 106 98-107 MMOL/L Carbon Dioxide Level 26 21-32 MMOL/L Anion Gap 8 5-14 MMOL/L Blood Urea Nitrogen 17 7-18 MG/DL Creatinine 0.96 0.60-1.30 MG/DL Estimat Glomerular Filtration Rate 58 BUN/Creatinine Ratio 18 Glucose Level 91 70-105 MG/DL Calcium Level 9.1 8.5-10.1 MG/DL Magnesium Level 1.9 1.8-2.4 MG/DL Total Bilirubin 0.5 0.1-1.0 MG/DL Aspartate Amino Transf (AST/SGOT) 23 5-34 U/L Alanine Aminotransferase (ALT/SGPT) 20 0-55 U/L Alkaline Phosphatase 56 40-136 U/L Troponin I < 0.30 <0.30 NG/ML Total Protein 6.9 6.4-8.2 GM/DL Albumin 3.9 3.2-4.5 GM/DL TSH [place] Testing 1.01 0.35-4.94 UIU/ML My Orders Orders - KG LEIGH MD Cbc With Automated Diff (08/02/17 14:15) Comprehensive Metabolic Panel (08/02/17 14:15) Magnesium (08/02/17 14:15) Thyroid Analyzer (08/02/17 14:15) Troponin I (08/02/17 14:15) Ua Culture If Indicated (08/02/17 14:15) Saline Lock/Iv-Start (08/02/17 14:15) Ekg Tracing (08/02/17 14:15) Monitor-Rhythm Ecg Trace Only (08/02/17 14:15) Ct Head Wo-R/O Stroke (08/02/17 14:15) Us Carotid Latoya Complete 03207 (08/02/17 15:54) Vital Signs/I&O Vital Sign - Last 12Hours 08/02/17 14:12 Pulse 72 Resp 16 B/P (MAP) 181/93 Pulse Ox 98 Blood Pressure Mean: 122 Progress Note : Progress Note Workup was unremarkable. Patient had no further deficits during her ER stay. She did remain hypertensive and she was advised to increase her losartan dose. Aspirin was considered but patient has an etodolac allergy. ECG Initial ECG Impression Date: Aug 02, 2017 Initial ECG Impression Time: 14:33 Initial ECG Rate: 68 Initial ECG Rhythm: Normal Sinus Initial ECG Intervals: Normal Initial ECG Impression: Normal Comment Normal sinus rhythm with no ST elevation or depression. No abnormal intervals or axis deviation. Diagnostic Imaging Diagonstic Imaging: CT Plain Films/CT/US/NM/MRI: head Comments CT head viewed by me and report reviewed. See report below: NAME: LOBO ONEAL MED REC#: [id number] PT STATUS: REG ER : 1945 PHYSICIAN: KG LEIGH MD ADMIT DATE: 08/02/17/ER Signed Date of Exam: 08/02/17 CT HEAD WO-R/O STROKE EXAM: CT head. TECHNIQUE: Noncontrast axial images of the brain were obtained. INDICATION: Left-sided numbness and tingling. FINDINGS: There is no intracranial hemorrhage, edema or mass effect. The brain parenchyma appears unremarkable. No hydrocephalus. The visualized portions of the orbits and paranasal sinuses appear unremarkable. IMPRESSION: Unremarkable study. Dictated by: Dictated on workstation # [id number] Dict: 08/02/17 1441 Trans: 08/02/17 144 Interpreted by: SUNG FLORES MD Electronically signed by: SUNG FLORES MD 08/02/17 144 Diagonstic Imaging: Ultrasound Comments Carotid ultrasound report reviewed. See report below: NAME: LOBO ONEAL [facility] REC#: [id number] PT STATUS: DEP ER : 1945 PHYSICIAN: KG LEIGH MD ADMIT DATE: 08/02/17/ER Signed Date of Exam: 08/02/17 US CAROTID LATOYA COMPLETE [id number] PROCEDURE: US Carotid Duplex Bilateral. TECHNIQUE: Multiple real-time grayscale images were obtained over the carotid arteries in various projections bilaterally. Additional duplex Doppler and color Doppler images were also obtained. INDICATION: Left-sided numbness. FINDINGS: Grayscale images demonstrate no atherosclerotic plaque of significance. Color Doppler demonstrates patency of the common, internal and external carotid arteries bilaterally. There is antegrade flow seen in the vertebral arteries on both sides. Peak systolic velocities in the ICA on the right are 28, 55, and 73 cm/s. Velocities on the left are 38, 64, and 87 cm/s from proximal to distal. Maximum ICA/CCA ratios are up to 1.1 on the right side and up to 1.2 on the left. IMPRESSION: No significant abnormality. Estimated underlying stenosis is in the range of 0-25% bilaterally. Dictated by: Dictated on workstation # [id number] Dict: 08/02/17 1628 Trans: 08/02/171706 Interpreted by: SUNG FLORES MD Electronically signed by: SUNG FLORES MD 08/02/171706 Departure Impression Impression: Primary Impression: Left sided numbness Additional Impression: Hypertension Qualified Codes: I10 - Essential (primary) hypertension Disposition: HOME, SELF-CARE Condition: Improved Departure-Patient Inst. Decision time for Depature: 16:30 Referrals: GINA VELASQUEZ MD (PCP/Family) Primary Care Physician Patient Instructions: Transient Ischemic Attack (DC) Add. Discharge Instructions: Follow-up with your primary care provider as soon as possible. Return to the emergency room immediately if you have any further neurologic symptoms that could be related to stroke. Increase your Losartan dose to 75 or 100 mg. Have your primary care provider monitor your blood pressure after making this change. You may take the full dose all at once or divided into two doses, one in the evening and one in the morning. Eat a low salt diet and drink plenty of water. All discharge instructions reviewed with patient and/or family. Voiced understanding. Copy Copies To 1: GINA VELASQUEZ MD, JOSHUA T MD Aug 02, 2017 16:19
--- NOTE | 2017-08-02 16:35 | Diagnostic Imaging Report ---
PROCEDURE: US Carotid Duplex Bilateral. TECHNIQUE: Multiple real-time grayscale images were obtained over the carotid arteries in various projections bilaterally. Additional duplex Doppler and color Doppler images were also obtained. INDICATION: Left-sided numbness. FINDINGS: Grayscale images demonstrate no atherosclerotic plaque of significance. Color Doppler demonstrates patency of the common, internal and external carotid arteries bilaterally. There is antegrade flow seen in the vertebral arteries on both sides. Peak systolic velocities in the ICA on the right are 28, 55, and 73 cm/s. Velocities on the left are 38, 64, and 87 cm/s from proximal to distal. Maximum ICA/CCA ratios are up to 1.1 on the right side and up to 1.2 on the left. IMPRESSION: No significant abnormality. Estimated underlying stenosis is in the range of 0-25% bilaterally. Dictated by: Dictated on workstation # [id number]
== END 2017-08-02 16:57 | disposition home or self-care (01) ==
LOC: EDUNIT# 14:01 → ER 14:03
DX: R20.0 Anesthesia of skin (principal); I10 Essential (primary) hypertension; Z87.19 Personal history of other diseases of the digestive system; Z90.710 Acquired absence of both cervix and uterus
CPT/HCPCS: 36415; 70450; 80053; 81000; 83735; 84443; 84484; 85025; 93005; 93880; 99283

== ENCOUNTER → 2018-07-03 | Outpatient (CLI) | payer MEDICARE, OTHER ==
[~2018-07-03] MED LIST changes: +HYDR-4226 PO; -HYDR-757 PO
--- NOTE | 2018-07-03 11:34 | Diagnostic Imaging Report ---
EXAMINATION: 2D and 3D bilateral screening mammography was performed with CAD. 3D tomosynthesis was also performed and reviewed. INDICATION: Routine screening. COMPARISON: 06/30/2017 and 06/22/2016. FINDINGS: Both breasts remain heterogeneously dense, limiting the sensitivity of mammography. There are benign calcifications bilaterally. No mass or malignant appearing microcalcifications are seen. The axillae are unremarkable. IMPRESSION: No mammographic features suspicious for malignancy are identified. ACR BI-RADS Category 2: Benign findings. Result letter will be mailed to the patient. Note: At least 10% of breast cancer is not imaged by mammography. Dictated by: Dictated on workstation # [id number]
== END ==
LOC: RAD 08:05
PROVIDERS: ATTEND Nurse Practitioner Family
DX: Z12.31 Encounter for screening mammogram for malignant neoplasm of breast (principal)
CPT/HCPCS: 77067

== ENCOUNTER → 2019-05-28 | Outpatient (CLI) | payer MEDICARE, OTHER | LOC: CARD 11:26 | PROVIDERS: ATTEND Physician Assistant | DX: I25.10 Atherosclerotic heart disease of native coronary artery without angina pectoris (principal); I10 Essential (primary) hypertension; E78.5 Hyperlipidemia, unspecified | CPT/HCPCS: 93351 ==

== ENCOUNTER → 2019-07-18 | Outpatient (CLI) | payer MEDICARE, OTHER ==
--- NOTE | 2019-07-18 09:04 | Diagnostic Imaging Report ---
INDICATION: Routine screening. COMPARISON: 07/03/2018 and 06/30/2017. TECHNIQUE: 2D and 3D bilateral screening mammography was performed with CAD. FINDINGS: Both breasts remain heterogeneously dense, limiting the sensitivity of mammography. There are scattered benign calcifications. No mass or malignant appearing microcalcifications are seen. The axillae are unremarkable. IMPRESSION: No mammographic features suspicious for malignancy are identified. ACR BI-RADS Category 2: Benign findings. Result letter will be mailed to the patient. Note: At least 10% of breast cancer is not imaged by mammography. Dictated by: Dictated on workstation # [id number]
== END ==
LOC: RAD 07:36
PROVIDERS: ATTEND Family Medicine
DX: Z12.31 Encounter for screening mammogram for malignant neoplasm of breast (principal)
CPT/HCPCS: 77067

== ENCOUNTER → 2020-06-12 | Outpatient (CLI) | payer MEDICARE, OTHER | LOC: CARD 08:03 | PROVIDERS: ATTEND Physician Assistant | DX: I25.10 Atherosclerotic heart disease of native coronary artery without angina pectoris (principal); I10 Essential (primary) hypertension; E78.5 Hyperlipidemia, unspecified; G45.9 Transient cerebral ischemic attack, unspecified | CPT/HCPCS: 93306 ==

== ENCOUNTER → 2020-06-16 | Outpatient (CLI) | payer MEDICARE, OTHER ==
[~2020-06-16] VITALS: Ht 160 cm; Wt 48.0 kg
[~2020-06-16] MED LIST changes: +CATHETER FLUSH 10 ML SYR IV PRN
[2020-06-16 09:41] VITALS: BP 128/82
[2020-06-16 09:46] VITALS: BP 157/76
[2020-06-16 09:48] VITALS: BP 156/84
--- NOTE | 2020-06-16 12:50 | Cardiology Stress Test Report ---
Stress Test Report Date of Procedure/Referring: Date of Procedure: Jun 16, 2020 PCP Jennifer Shelton Admitting Physician Ayad Parnell MD Indications: Hypertension Baseline Heart Rate: 60 Baseline Blood Pressure: Blood Pressure Systolic: 156 Blood Pressure Diastolic: 84 Vital Signs Date Time Temp Pulse Resp B/P (MAP) Pulse Ox O2 Delivery O2 Flow Rate FiO2 06/16/20 09:41 77 128/82 (97) 06/16/20 09:46 26 97 Room Air Baseline Vital Signs Vital Signs Date Time Temp Pulse Resp B/P (MAP) Pulse Ox O2 Delivery O2 Flow Rate FiO2 06/16/20 09:41 77 128/82 (97) 06/16/20 09:46 26 97 Room Air Baseline EKG: Baseline EKG: normal sinus rhythm Summary: After explaining the procedure and details to the patient, she signed the consent and was brought to the stress nuclear laboratory. Patient exercised on standard Arjun protocol, EKG, heart rate and blood pressure were monitored continuously, resting and stress doses of radio tracer were injected, imaging was acquired and reviewed in the short axis, horizontal long axis and vertical long axis views Patient was able to exercise for a total of [ 4] minutes on Arjun protocol, METs 5.8 Maximum heart rate 139 Maximum blood pressure 156/84 Stress EKG, Minimal nondiagnostic changes Recovery EKG, Return to baseline TID: 0.88 SSS: 1 SDS: 1 EF: 70 Conclusion: 1. Fair exercise tolerance for a total of 4 minutes on standard Arjun protocol total of 5.8 METs 2. Appropriate heart rate and blood pressure response to exercise returned to baseline during recovery 3. Minimal nondiagnostic EKG changes with exercise returned to baseline during recovery 4. No ischemia or infarction on SPECT images 5. Normal left ventricular size, EF 70 percent EDISON MERCADO MD Jun 16, 2020 12:50
== END ==
LOC: CARD 08:02
PROVIDERS: ATTEND Physician Assistant
DX: I25.10 Atherosclerotic heart disease of native coronary artery without angina pectoris (principal); I10 Essential (primary) hypertension; E78.5 Hyperlipidemia, unspecified; G45.9 Transient cerebral ischemic attack, unspecified
CPT/HCPCS: 78452; 93017; A9502

== ENCOUNTER → 2020-07-21 | Outpatient (CLI) | payer MEDICARE, OTHER ==
[~2020-07-21] MED LIST changes: -CATHETER FLUSH 10 ML SYR IV PRN
--- NOTE | 2020-07-21 11:23 | Diagnostic Imaging Report ---
EXAMINATION: Digital mammogram bilateral screening with CAD. INDICATION: Screening. COMPARISON: This study was compared to the prior exams of 07/18/2019, 07/03/2018, and 06/30/2017. PERSONAL HISTORY: At this time, there are no current complaints. FINDINGS: The fibroglandular tissue in both breasts is dense. This does limit the sensitivity of this exam. Overall, there does not appear to have been any significant change when compared to the prior study. No primary or secondary sign of malignancy is noted. IMPRESSION: There is no radiographic evidence for malignancy. ACR BI-RADS Category 1: Negative. Result letter will be mailed to the patient. Note: At least 10% of breast cancer is not imaged by mammography. Dictated by: Dictated on workstation # [id number]
== END ==
LOC: RAD 08:00
DX: Z12.31 Encounter for screening mammogram for malignant neoplasm of breast (principal)
CPT/HCPCS: 77063; 77067

== ENCOUNTER 2020-12-17 09:30 | Day surgery (SDC) | payer MEDICARE, OTHER ==
[~2020-12-17] VITALS: Ht 157 cm; Wt 49.0 kg
[~2020-12-17 09:30] MED LIST changes: +LIDOCAINE 1% INJ 20 ML 20 ML VIAL INJ ONE; +LIDOCAINE 1% INJ 20 ML 20 ML VIAL ONE
[2020-12-17 09:33] VITALS: BP 160/85
--- NOTE | 2020-12-17 10:45 | Implantation of Loop Monitor ---
Implant of Loop Monitior IMPLANTATION OF LOOP MONITOR REPORT DATE OF PROCEDURE: 12/17/20 PREOP DIAGNOSIS: Paroxysmal atrial fibrillation POSTOP DIAGNOSIS: Paroxysmal atrial fibrillation PROCEDURE DETAILS: The patient is a 75 female with history of paroxysmal atrial fibrillation requiring long-term surveillance. Therefore implantable loop recorder was discussed and agreed with the patient. Informed consent was taken. All risks and complications were discussed at length. The patient was draped and prepped in the usual sterile fashion. Local anesthesia was lidocaine, which was given in the substernal area close to the 4th intercostal space. Loop monitor [employer] with serial number [id number] was implanted according to the protocol. Steri- Strips were placed at the end of the procedure. There were no complications and the patient tolerated the procedure well. The device was interrogated with a voltage of. ANESTHESIA: Local anesthesia with lidocaine. COMPLICATIONS: None CONTRAST/FLUOROSCOPY: None CONCLUSION: Successful implantation of flu monitor with no complication FINAL DIAGNOSIS: Paroxysmal atrial fibrillation Crohn disease Hypertension EDISON MERCADO MD Dec 17, 2020 10:45
== END 2020-12-17 10:16 | disposition home or self-care (01) ==
LOC: CATH 10:16
PROVIDERS: ATTEND Internal Medicine Cardiovascular Disease
DX: I48.0 Paroxysmal atrial fibrillation (principal); I10 Essential (primary) hypertension; K50.90 Crohn's disease, unspecified, without complications; E78.2 Mixed hyperlipidemia; I25.10 Atherosclerotic heart disease of native coronary artery without angina pectoris; G45.9 Transient cerebral ischemic attack, unspecified; Z79.01 Long term (current) use of anticoagulants; Z79.899 Other long term (current) drug therapy; Z88.6 Allergy status to analgesic agent; Z88.2 Allergy status to sulfonamides
CPT/HCPCS: 33285; C1764

== ENCOUNTER → 2021-03-23 | Outpatient (CLI) | payer MEDICARE, OTHER ==
[~2021-03-23] MED LIST changes: -LIDOCAINE 1% INJ 20 ML 20 ML VIAL INJ ONE; -LIDOCAINE 1% INJ 20 ML 20 ML VIAL ONE
--- NOTE | 2021-03-23 15:58 | Diagnostic Imaging Report ---
INDICATION: Hypertension and chest tightness. PA and lateral views of the chest are obtained. COMPARISON: No previous study is available for comparison at this time. FINDINGS: Heart size and pulmonary vasculature are within normal limits, and the lungs are clear, bilaterally. Loop recorded is noted in the left anterior chest wall. IMPRESSION: Unremarkable chest. Dictated by: Dictated on workstation # [id number]
== END ==
LOC: RAD 15:06
PROVIDERS: ATTEND Internal Medicine Cardiovascular Disease
DX: I10 Essential (primary) hypertension (principal); R07.89 Other chest pain
CPT/HCPCS: 71046

== ENCOUNTER → 2021-07-31 | Outpatient (CLI) | payer MEDICARE, OTHER ==
--- NOTE | 2021-08-03 11:12 | Diagnostic Imaging Report ---
INDICATION: Routine screening. Comparison is made with prior mammogram 07/21/2020 and 07/18/2019. 2-D and 3-D bilateral screening mammography was performed with CAD. Both breasts are heterogeneously dense, limiting the sensitivity of mammography. The parenchymal pattern is stable. No mass or malignant-appearing microcalcifications are seen. There are benign calcifications. Cardiac monitoring device overlies the left breast. Axillae are unremarkable. IMPRESSION: BI-RADS Category 2 No mammographic features suspicious for malignancy are identified. ACR BI-RADS Category 2: Benign findings. Result letter will be mailed to the patient. Note: At least 10% of breast cancer is not imaged by mammography. Dictated by: Dictated on workstation # [id number]
== END ==
LOC: RAD 13:45
DX: Z12.31 Encounter for screening mammogram for malignant neoplasm of breast (principal)
CPT/HCPCS: 77063; 77067

== ENCOUNTER → 2022-07-01 | Outpatient (CLI) | payer MEDICARE, OTHER | LOC: CARD 09:00 | PROVIDERS: ATTEND Internal Medicine Cardiovascular Disease | DX: I11.9 Hypertensive heart disease without heart failure (principal) | CPT/HCPCS: 93306 ==